=== PATIENT | female | born 1990 | race African-American/Black ===

== ENCOUNTER 2025-05-14 10:48 | Emergency (ER) | payer MEDICAID ==
[~2025-05-14] VITALS: Ht 167.6 cm; Wt 65.7 kg
[2025-05-14 10:57] VITALS: O2SAT 98
[2025-05-14] MEDS ORDERED: GUAI120017 MT (13:30)
[2025-05-14] MEDS ORDERED: IBUP1TAB11 MT (13:30)
[2025-05-14 14:12] VITALS: BP 151/96; PULSE 65; RESP 18; TEMP 36.7; O2SAT 98
[2025-05-14 14:47] LABS: INFLUENZA TYPE A Presumptive Negative (Pres. Neg.)
[2025-05-14 14:49] LABS: INFLUENZA TYPE B Presumptive Negative (Pres. Neg.)
== END 2025-05-14 14:13 | disposition home or self-care (01) ==
LOC: ER 10:48
DX: J06.9 Acute upper respiratory infection, unspecified (principal); B97.89 Other viral agents as the cause of diseases classified elsewhere; Z79.899 Other long term (current) drug therapy
CPT/HCPCS: 71045; 81025; 87804; 99284